=== PATIENT | male | born 1990 | race Hispanic/Latino ===

== ENCOUNTER 2019-08-01 00:08 | Emergency (ER) | payer SELFPAY ==
[2019-08-01] MEDS ORDERED: Adacel (T-DAP) 0.5 ML SYRINGE ONE (01:11)
== END 2019-08-01 01:55 | disposition home or self-care (01) ==
LOC: ERS 00:08
DX: S40.022A Contusion of left upper arm, initial encounter (principal); S00.81XA Abrasion of other part of head, initial encounter; S10.91XA Abrasion of unspecified part of neck, initial encounter; F17.210 Nicotine dependence, cigarettes, uncomplicated; Y04.0XXA Assault by unarmed brawl or fight, initial encounter
CPT/HCPCS: 90471; 90715